=== PATIENT | male | born 1975 | race Caucasian/White ===

== ENCOUNTER 2020-12-24 07:59 | Outpatient (CLI) | payer BC, SELFPAY ==
--- NOTE | ~2020-12-24 | MR_ITS ---
EXAMINATION: MR knee RT wo con DATE: 12/24/2020 08:53 INDICATION: Right knee pain TECHNIQUE: Magnetic resonance imaging (MRI) of the right knee was performed without intravenous contr ast. Sequences included coronal PD-weighted FSE, coronal PD-weighted FS FSE, sagittal T2-weighted FS E, sagittal PD-weighted FS FSE and axial PD weighted fat saturated FSE. COMPARISON: None. FINDINGS: Medial compartment: Medial meniscus is normal. Articular cartilage is normal. Lateral compartment: Lateral meniscus is normal. Articular cartilage is normal. Patellofemoral compartment: Small focus of chondral swelling and possible shallow fissuring along the medial patellar facet. Cart ilage at the lateral patellar facet and at the trochlea is normal. Ligaments and tendons: Anterior and posterior cruciate ligaments are normal. The medial collateral ligament and fibular kaylen ateral ligament complex are normal. There are small amounts of fluid at both the deep and subcutaneou s infrapatellar bursae consistent with bursitis. The intervening patellar tendon remains normal. The quadriceps tendon is normal. The visualized medial and lateral hamstring tendons as well as the iliot ibial band are normal. Fluid: Physiologic amount of fluid in the joint space. No loose osteochondral bodies identified. Osseous/other: Normal marrow signal. No fracture or abnormal marrow replacing process. IMPRESSION: 1. Mild subcutaneous infrapatellar and deep infrapatellar bursitis. 2. 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 Reviewed, dictated and finalized at location A. IMPRESSION: 1. Mild subcutaneous infrapatellar and deep infrapatellar bursitis. 2. Minimal patellofemoral osteoarthritis with small region of low to moderate g rade chondromalacia at the medial patellar facet.
== END 2020-12-24 08:00 | disposition home or self-care (01) ==
PROVIDERS: PCP Nurse Practitioner Family; Visit Provider Nurse Practitioner Family
DX: M17.12 Unilateral primary osteoarthritis, left knee (principal); M70.51 Other bursitis of knee, right knee; M22.41 Chondromalacia patellae, right knee
CPT/HCPCS: 73721